=== PATIENT | female | born 1945 ===

== ENCOUNTER 2022-03-03 07:23 | Inpatient (IN) | payer MEDICARE, OTHER, SELFPAY ==
[2022-03-03] MEDS ORDERED: Ibuprofen 200 MG TAB ONE (09:38)
[2022-03-03] MEDS ORDERED: Morphine 4 MG/ML VIAL ONE (11:47)
[2022-03-03] MEDS ORDERED: Ondansetron PF 4 MG/2 ML Vial ONE (11:47)
[2022-03-03] MEDS ORDERED: niCARdipine 25 MG/10 ML VIAL ONE (11:51)
[2022-03-03 12:32] LABS: #Basophils 0.1 thou/uL (0.0-0.2); #Eosinphils 0.1 thou/uL (0.0-0.7); #Monocytes 0.6 thou/uL (0.11-0.59); #Neutrophils 5.8 thou/uL (1.40-6.50); %Basophils 0.6 % (0.0-1.0); %Eosinophils 0.9 % (0.0-10.0); %Lymphocytes 23.8 % (21.0-51.0); %Monocytes 7.4 % (0.0-10.0); %Neutrophils 67.2 % (42.0-75.0); Hemoglobin 12.4 g/dL (12.0-16.0); Mean Corpuscular HGB CONC 32.2 g/dL (32.0-36.0); Mean Corpuscular Hemoglobin 29.8 pg (27.0-31.0); Mean Corpuscular Volume 92.6 fL (78.0-98.0); Mean Platelet Volume 9.7 fL (7.4-10.4); Platelet Count 171 thou/uL (130-400); RBC Distribution Width 12.1 % (11.5-14.5); Red Blood Cell (RBC) Count 4.15 mill/uL (4.20-5.40); White Blood Cell (WBC) Count 8.6 thou/uL (4.8-10.8)
[2022-03-03 12:42] LABS: INR-International Normal Ratio 0.9; PTT 28.6 sec (22.9-36.1)
[2022-03-03 12:43] LABS: Bilirubin Negative (Negative); Blood, Urine Negative (Negative); Clarity Clear (Clear); Glucose, Urine (Dipstick) Normal (Negative); Ketone, Urine Negative (Negative); Leukocyte Negative Leu/uL (Negative); Nitrite Negative (Negative); Protein, Urine (Dipstick) Negative (Neg-Trace); Specific Gravity, Urine 1.008 (1.002-1.036); Urobilinogen Normal mg/dL (Less than 2); pH, Urine 7.5 (5.0-9.0)
[2022-03-03 13:00] LABS: ALT (SGPT) 32 U/L (8-55); AST (SGOT) 34 U/L (5-34); Albumin 3.8 g/dL (3.4-4.8); Alkaline Phosphatase 79 U/L (40-110); Anion Gap 16 mmol/L (10-20); BUN (Urea Nitrogen) 16 mg/dL (9.8-20.1); Bilirubin, Total 0.7 mg/dL (0.2-1.2); CK (CPK) 107 U/L (29-168); Calc. Creatinine Clearance 0 mL/min (70-130); Calcium 9.2 mg/dL (7.8-10.44); Carbon Dioxide 22 mmol/L (23-31); Chloride 108 mmol/L (98-107); Globulin 2.6 g/dL (2.4-3.5); Glucose 116 mg/dL (83-110); Potassium 4.5 mmol/L (3.5-5.1); Protein, Total 6.4 g/dL (5.8-8.1); Sodium 141 mmol/L (136-145)
[2022-03-03] MEDS ORDERED: Lisinopril 2.5 MG TAB PO SCH ×2 (13:38→21:00)
[2022-03-03] MEDS ORDERED: Ondansetron PF 4 MG/2 ML Vial IVP PRN (13:39)
[2022-03-03] MEDS ORDERED: Dextrose 50% Abboject 50 ML SYRINGE SLOW IVP PRN (13:39)
[2022-03-03] MEDS ORDERED: HumaLOG 300 UNITS/3 ML VIAL SC PRN (13:39)
[2022-03-03] MEDS ORDERED: Promethazine HCl 25 MG/ML VIAL IM PRN (13:39)
[2022-03-03] MEDS ORDERED: hydrALAZINE 20 MG/ML VIAL SLOW IVP PRN (13:39)
[2022-03-03] MEDS ORDERED: Dextrose 5% in Water 1,000 ML IV PRN (13:39)
[2022-03-03] MEDS: Sodium Chloride 0.9% 1,000 ML IV SCH (15:25)
[2022-03-03] MEDS: Acetaminophen 500 MG TAB PO SCH ×2 (15:25→20:09)
[2022-03-03 15:41] VITALS: BMI 25.2
[2022-03-03] MEDS ORDERED: niCARdipine 25 MG in Sodium Chloride 0.9% 250 ML 250 ML IVPB SCH (16:45)
[2022-03-03] MEDS: Famotidine/PF 20 mg/2ml Vial SLOW IVP SCH (20:10)
[2022-03-04] MEDS: Acetaminophen 500 MG TAB PO SCH ×4 (02:03→20:55)
[2022-03-04] MEDS: hydrALAZINE 20 MG/ML VIAL SLOW IVP PRN ×2 (05:19→18:33)
[2022-03-04 06:33] LABS: #Basophils 0.1 thou/uL (0.0-0.2); #Eosinphils 0.3 thou/uL (0.0-0.7); #Lymphocytes 1.9 thou/uL (1.20-3.40); #Monocytes 0.5 thou/uL (0.11-0.59); #Neutrophils 3.1 thou/uL (1.40-6.50); %Basophils 1.1 % (0.0-1.0); %Eosinophils 4.6 % (0.0-10.0); %Lymphocytes 32.7 % (21.0-51.0); %Neutrophils 53.6 % (42.0-75.0); Hemoglobin 12.4 g/dL (12.0-16.0); Mean Corpuscular HGB CONC 32.6 g/dL (32.0-36.0); Mean Corpuscular Hemoglobin 29.7 pg (27.0-31.0); Mean Corpuscular Volume 91.1 fL (78.0-98.0); Platelet Count 163 thou/uL (130-400); RBC Distribution Width 11.9 % (11.5-14.5); Red Blood Cell (RBC) Count 4.16 mill/uL (4.20-5.40); White Blood Cell (WBC) Count 5.7 thou/uL (4.8-10.8)
[2022-03-04 06:51] LABS: Anion Gap 13 mmol/L (10-20); BUN (Urea Nitrogen) 12 mg/dL (9.8-20.1); Calc. Creatinine Clearance 81 mL/min (70-130); Calcium 9.1 mg/dL (7.8-10.44); Carbon Dioxide 21 mmol/L (23-31); Chloride 112 mmol/L (98-107); Glucose 106 mg/dL (83-110); Phosphorus 3.1 mg/dL (2.3-4.7); Potassium 3.9 mmol/L (3.5-5.1); Sodium 142 mmol/L (136-145)
[2022-03-04 06:53] LABS: INR-International Normal Ratio 0.9; PTT 29.8 sec (22.9-36.1); Prothrombin Time 12.3 sec (12.0-14.7)
[2022-03-04] MEDS: Sodium Chloride 0.9% 1,000 ML IV SCH (08:08)
[2022-03-04] MEDS: Famotidine/PF 20 mg/2ml Vial SLOW IVP SCH (08:09)
[2022-03-04] MEDS ORDERED: Lisinopril 5 MG TAB PO SCH ×2 (09:00→09:15)
[2022-03-04] MEDS ORDERED: Lisinopril 10 MG TAB PO SCH ×2 (09:00→09:15)
[2022-03-04] MEDS ORDERED: Amlodipine 5 MG TAB PO SCH (10:00)
[2022-03-04] MEDS: Lisinopril 10 MG TAB PO SCH (20:56)
[2022-03-04] MEDS: Famotidine 20 MG TAB PO SCH (20:56)
[2022-03-04] MEDS ORDERED: Atorvastatin Calcium 40 MG TAB PO SCH (21:00)
[2022-03-05] MEDS: Acetaminophen 500 MG TAB PO SCH ×3 (00:53→16:30)
[2022-03-05] MEDS: hydrALAZINE 20 MG/ML VIAL SLOW IVP PRN (03:49)
[2022-03-05] MEDS: Lisinopril 10 MG TAB PO SCH (05:55)
[2022-03-05] MEDS ORDERED: Amlodipine 5 MG TAB PO SCH (09:00)
[2022-03-05] MEDS ORDERED: Amlodipine 10 MG TAB PO SCH (09:00)
[2022-03-05] MEDS: Famotidine 20 MG TAB PO SCH (09:49)
[2022-03-05 11:44] VITALS: BP 159/72; TEMP 98.1
== END 2022-03-05 16:36 | disposition home or self-care (01) | DRG 86 ==
LOC: ERS 07:23 → CCU 12:38 → SURG A 03-04 18:40
PROVIDERS: ADMIT Surgery; ATTEND Surgery
DX: S06.2X0A Diffuse traumatic brain injury without loss of consciousness, initial encounter (principal); S52.614A Nondisplaced fracture of right ulna styloid process, initial encounter for closed fracture; S52.571A Other intraarticular fracture of lower end of right radius, initial encounter for closed fracture; I16.1 Hypertensive emergency; Z20.822 Contact with and (suspected) exposure to COVID-19; E11.9 Type 2 diabetes mellitus without complications; E78.5 Hyperlipidemia, unspecified; I10 Essential (primary) hypertension; I25.10 Atherosclerotic heart disease of native coronary artery without angina pectoris; W18.30XA Fall on same level, unspecified, initial encounter; Z95.1 Presence of aortocoronary bypass graft; Z79.84 Long term (current) use of oral hypoglycemic drugs; Z79.82 Long term (current) use of aspirin; Z79.01 Long term (current) use of anticoagulants; Z79.899 Other long term (current) drug therapy
CPT/HCPCS: 36415; 36416; 70450; 71045; 80048; 80053; 81003; 82550; 83735; 83880; 84100; 84484; 85025; 85610; 85730; 93005; 96374; J0360; J1815; J2270; J2405; J7050; S0028